=== PATIENT | male | born 1950 | race Caucasian/White ===

== ENCOUNTER 2019-06-13 21:54 | Emergency (ER) | payer MEDICARE ==
[~2019-06-13] VITALS: Ht 185.4 cm; Wt 69.8 kg
[~2019-06-13 21:54] MED LIST: ACET325T26 PO; AMBIEN; ZOLP10TA PO
--- NOTE | 2019-06-13 22:48 | NUR ---
PT NIL X3 CALLED [phone], [phone], AND [phone]
--- NOTE | 2019-06-13 23:40 | NUR ---
PT WAS CALLED MULTIPLE TIMES IN TRIAGE WITH NO ANSWER, PT NOW REAPPEARED AND WAS TRIAGED, ASSISTED TO ED ROOM 17
[2019-06-14] MEDS ORDERED: DEXAMETHASONE 4 MG TABLET PO ONE (00:30)
[2019-06-14] MEDS ORDERED: BENZONATATE 100 MG CAPSULE PO ONE (00:30)
[2019-06-14] MEDS ORDERED: DEXAMETHASONE 4 MG TABLET ONE (00:33)
[2019-06-14] MEDS ORDERED: BENZONATATE 100 MG CAPSULE ONE (00:33)
[2019-06-14 00:39] VITALS: BP 140/83
--- NOTE | 2019-06-14 00:42 | NUR ---
Pt presents to ed c/o sobxmultiple weeks w/ a productive cough and green phlegm. Pt denies any cp w/ sob. Pt denies any relevant medical hx. Monitoring applied. Vss. Call light within reach.
[2019-06-14 01:03] LABS: BASOPHILS # (AUTO) 0.04 x10^3/uL (0-0.1); BASOPHILS % (AUTO) 1 % (0-1); EOSINOPHILS # (AUTO) 0.17 x10^3/uL (0-0.4); EOSINOPHILS % (AUTO) 2 % (1-7); LYMPHOCYTES # (AUTO) 1.79 x10^3/uL (1-3.4); LYMPHOCYTES % (AUTO) 20 % (22-44); MD NO; MEAN CORPUSCULAR HEMOGLOBIN 32.3 pg (27.5-34.5); MEAN CORPUSCULAR HGB CONC 33.8 g/dL (33.2-36.2); MEAN CORPUSCULAR VOLUME 95.3 fL (81-97); MEAN PLATELET VOLUME 8.1 fL (7.4-10.4); MONOCYTES # (AUTO) 0.77 x10^3/uL (0.2-0.8); MONOCYTES % (AUTO) 9 % (2-9); NEUTROPHILS # (AUTO) 6.08 x10^3/uL (1.8-6.8); NEUTROPHILS % (AUTO) 69 % (42-75); PLATELET COUNT 304 x10^3/uL (130-400); RED BLOOD COUNT 4.89 x10^6/uL (4.38-5.82); RED CELL DISTRIBUTION WIDTH 14.8 % (9.4-14.8)
[2019-06-14 01:15] LABS: ALANINE AMINOTRANSFERASE 42 U/L (12-78); ALBUMIN 3.6 g/dL (3.4-5.0); ANION GAP 6 mmol/L (5-15); CALCIUM 8.7 mg/dL (8.5-10.1); CHLORIDE 101 mmol/L (98-107); CREATININE 0.69 mg/dL (0.7-1.3)
[2019-06-14 01:19] LABS: ALKALINE PHOSPHATASE 89 U/L (45-117); BILIRUBIN,TOTAL 0.5 mg/dL (0.2-1.0); TOTAL PROTEIN 7.1 g/dL (6.4-8.2)
== END 2019-06-13 22:59 ==
LOC: ED 22:53
DX: J20.8 Acute bronchitis due to other specified organisms (principal); J02.8 Acute pharyngitis due to other specified organisms; F17.210 Nicotine dependence, cigarettes, uncomplicated
CPT/HCPCS: 36415; 71046; 80053; 83880; 85025; 93005; 99284

== ENCOUNTER 2020-05-15 19:55 | Emergency (ER) | payer MEDICARE ==
[~2020-05-15] VITALS: Ht 185.4 cm; Wt 73.0 kg
--- NOTE | 2020-05-15 20:11 | NUR ---
PATIENT WALKED BACK FROM TRIAGE WITH CHIEF C/O CELLULITIS IN RIGHT LOWER EXTREMITY. PATIENT SEEN AT [place] [id number] IN THE LAST TWO WEEKS, HE WAS PRESCRIBED AN ABX, HOWEVER IT IS NOT HELPING. PATIENT STATES HE DOENS'T HAVE ANY FEELING IN HIS RIGHT FOOT WHEN HE WAKES UP. PATIENT'S RIGHT FOOT IS RED, SWOLLEN, AND WARM TO THE TOUCH. NO SIGNS OF ACUTE DISTRESS, CALL LIGHT WITHIN REACH.
[2020-05-15 20:41] LABS: BASOPHILS % (AUTO) 1 % (0-1); EOSINOPHILS % (AUTO) 1 % (1-7); LYMPHOCYTES % (AUTO) 30 % (22-44); MEAN CORPUSCULAR HEMOGLOBIN 30.9 pg (27.5-34.5); MEAN CORPUSCULAR HGB CONC 33.4 g/dL (33.2-36.2); MEAN PLATELET VOLUME 7.8 fL (7.4-10.4); MONOCYTES % (AUTO) 10 % (2-9); NEUTROPHILS % (AUTO) 58 % (42-75); PLATELET COUNT 310 x10^3/uL (130-400); RED BLOOD COUNT 4.51 x10^6/uL (4.38-5.82); RED CELL DISTRIBUTION WIDTH 15.3 % (9.4-14.8)
[2020-05-15 20:49] LABS: ALBUMIN 3.6 g/dL (3.4-5.0); ANION GAP 9 mmol/L (5-15); C-REACTIVE PROTEIN, QUANT 0.17 mg/dL (0.02-0.49); CHLORIDE 103 mmol/L (98-107); CREATININE 0.87 mg/dL (0.7-1.3)
[2020-05-15 21:01] LABS: MD NO
--- NOTE | 2020-05-15 21:07 | NUR ---
PATIENT RESTING IN GURNEY WATCHING TV, CONNECTED TO VITALS MACHINE, NO SIGNS OF ACUTE DISTRESS, CALL LIGHT WITHIN REACH.
[2020-05-15 21:11] VITALS: BP 126/74
--- NOTE | 2020-05-15 21:25 | NUR ---
Patient given discharge instructions and prescription and they have confirmed that they understand the instructions, all questions answered. All patient belongings gathered by patient. Patient ambulatory with steady gait to discharge desk. Bus pass provided to patient.
[2020-05-15 21:51] LABS: HCT (SEDRATE) 41.7 % (39.2-51.8)
== END 2020-05-15 21:26 | disposition home or self-care (01) ==
LOC: ED 21:00
DX: M79.671 Pain in right foot (principal); F17.200 Nicotine dependence, unspecified, uncomplicated
CPT/HCPCS: 36415; 80048; 82040; 85025; 85651; 86140; 99284

== ENCOUNTER 2020-07-24 09:57 | Emergency (ER) | payer MEDICARE ==
[~2020-07-24] VITALS: Ht 185.4 cm; Wt 72.5 kg
[2020-07-24 10:02] VITALS: BP 141/90
--- NOTE | 2020-07-24 10:17 | NUR ---
PATIENT IS A 70/M COMPLAINING OF LEFT ELBOW PAIN AND SWELLING X 2 MONTHS. HE WANTS IT DRAINED. PROVIDER AT BEDSIDE FOR EVALUATION. PATIENT RESTING COMFORTABLY WATCHING TV. CONTINUOUS SPO2 AND CYCLING VITALS. CALL LIGHT WITHIN REACH.
--- NOTE | 2020-07-24 10:26 | NUR ---
CONSENT SIGNED FOR I&D, FOR LEFT ELBOW, PT VERBALIZED UNDERSTANDING
[2020-07-24] MEDS ORDERED: TRIAMCINOLONE ACETONIDE 40 MG/ML, 1ML IM ONE (11:00)
--- NOTE | 2020-07-24 11:10 | NUR ---
ORDERED MEDS FROM PHARMACY
== END 2020-07-24 12:09 | disposition home or self-care (01) ==
LOC: ED 10:24
DX: M70.22 Olecranon bursitis, left elbow (principal); M79.89 Other specified soft tissue disorders; F17.200 Nicotine dependence, unspecified, uncomplicated
CPT/HCPCS: 20605; 84560; 85810; 87070; 87205; 89050; 89060; 99284

== ENCOUNTER 2020-09-22 19:18 | Emergency (ER) | payer MEDICARE ==
[~2020-09-22] VITALS: Ht 185.4 cm; Wt 68.0 kg
[2020-09-22 19:21] VITALS: BP 140/86
[2020-09-22 20:40] LABS: BASOPHILS % (AUTO) 0 % (0-1); EOSINOPHILS % (AUTO) 1 % (1-7); LYMPHOCYTES % (AUTO) 21 % (22-44); MEAN CORPUSCULAR HEMOGLOBIN 32.1 pg (27.5-34.5); MEAN CORPUSCULAR HGB CONC 33.9 g/dL (33.2-36.2); MEAN PLATELET VOLUME 8.2 fL (7.4-10.4); MONOCYTES % (AUTO) 11 % (2-9); NEUTROPHILS % (AUTO) 66 % (42-75); PLATELET COUNT 315 x10^3/uL (130-400); RED BLOOD COUNT 4.23 x10^6/uL (4.38-5.82); RED CELL DISTRIBUTION WIDTH 14.4 % (9.4-14.8)
[2020-09-22 20:44] LABS: MD NO
[2020-09-22 20:47] LABS: ANION GAP 8 mmol/L (5-15); CALCIUM 8.3 mg/dL (8.5-10.1); CHLORIDE 103 mmol/L (98-107); CREATININE 0.75 mg/dL (0.7-1.3)
[2020-09-22] MEDS ORDERED: DOXYCYCLINE 100MG TABLET PO ONE (21:00)
[2020-09-22] MEDS ORDERED: SULFAMETH./TRIMETHOPRIM DS 800MG/160MG TABLET PO ONE (21:00)
[2020-09-22] MEDS ORDERED: SULFAMETH./TRIMETHOPRIM DS 800MG/160MG TABLET ONE (21:32)
[2020-09-22] MEDS ORDERED: DOXYCYCLINE 100MG TABLET ONE (21:32)
== END 2020-09-22 22:01 | disposition home or self-care (01) ==
LOC: ED 21:55
DX: L03.114 Cellulitis of left upper limb (principal); L03.113 Cellulitis of right upper limb; R00.0 Tachycardia, unspecified
CPT/HCPCS: 36415; 80048; 85025; 99283

== ENCOUNTER 2020-10-18 16:29 | Emergency (ER) | payer MEDICARE ==
[~2020-10-18] VITALS: Ht 185.4 cm; Wt 68.9 kg
[2020-10-18 16:31] VITALS: BP 143/91
--- NOTE | 2020-10-18 16:38 | NUR ---
PT REFUSING TO GET INTO A GOWN.
--- NOTE | 2020-10-18 16:47 | NUR ---
CC OF "BALL" ON ELBOW, PT STATES "I WANT IT GONE TODAY". "BALL" IS GOLF BALL SIZE, FLESH COLORED WITH SCAB ON CENTER.
--- NOTE | 2020-10-18 18:39 | NUR ---
pt requesting food. up for recheck
--- NOTE | 2020-10-18 19:03 | NUR ---
REPORT GIVEN TO RICHARD WAHL
--- NOTE | 2020-10-18 19:21 | NUR ---
PT NOT IN ROOM. GOWN THROWN ON THE FLOOR. ALL PERSONAL BELONGINGS GONE.
== END 2020-10-18 19:23 | disposition left against medical advice (07) ==
LOC: ED 18:06
DX: M70.22 Olecranon bursitis, left elbow (principal); Y93.89 Activity, other specified
CPT/HCPCS: 99283

== ENCOUNTER 2020-10-22 22:38 | Emergency (ER) | payer MEDICARE ==
--- NOTE | 2020-10-22 23:08 | NUR ---
Dr Brandon at bedside.
[2020-10-22 23:29] LABS: BASOPHILS % (AUTO) 1 % (0-1); EOSINOPHILS % (AUTO) 2 % (1-7); LYMPHOCYTES % (AUTO) 17 % (22-44); MEAN CORPUSCULAR HEMOGLOBIN 33.6 pg (27.5-34.5); MEAN CORPUSCULAR HGB CONC 34.4 g/dL (33.2-36.2); MEAN PLATELET VOLUME 7.6 fL (7.4-10.4); MONOCYTES % (AUTO) 11 % (2-9); NEUTROPHILS % (AUTO) 69 % (42-75); PLATELET COUNT 294 x10^3/uL (130-400); RED BLOOD COUNT 4.06 x10^6/uL (4.38-5.82)
[2020-10-22] MEDS ORDERED: SULFAMETH./TRIMETHOPRIM DS 800MG/160MG TABLET PO ONE (23:30)
[2020-10-22] MEDS ORDERED: CEPHALEXIN 500 MG CAPSULE PO ONE (23:30)
[2020-10-22] MEDS ORDERED: CEPHALEXIN 500 MG CAPSULE ONE (23:37)
[2020-10-22 23:38] LABS: ALANINE AMINOTRANSFERASE 29 U/L (12-78); ALBUMIN 3.5 g/dL (3.4-5.0); ANION GAP 8 mmol/L (5-15); CALCIUM 8.5 mg/dL (8.5-10.1); CHLORIDE 100 mmol/L (98-107)
[2020-10-22] MEDS ORDERED: SULFAMETH./TRIMETHOPRIM DS 800MG/160MG TABLET ONE (23:38)
[2020-10-22 23:41] LABS: ALKALINE PHOSPHATASE 96 U/L (45-117); BILIRUBIN,TOTAL 0.5 mg/dL (0.2-1.0); CREATININE 0.65 mg/dL (0.7-1.3); TOTAL PROTEIN 6.7 g/dL (6.4-8.2)
[2020-10-22 23:48] LABS: MD NO
--- NOTE | 2020-10-22 23:53 | NUR ---
Medicated per order, ultrasound done. Pt asking for pain medications.
[2020-10-23 00:23] VITALS: BP 135/71
== END 2020-10-23 00:40 | disposition home or self-care (01) ==
LOC: ED 10-23 00:35
DX: M70.22 Olecranon bursitis, left elbow (principal); M79.89 Other specified soft tissue disorders
CPT/HCPCS: 36415; 80053; 83735; 85025; 99284

== ENCOUNTER 2020-11-09 21:20 | Emergency (ER) | payer MEDICARE ==
[~2020-11-09] VITALS: Ht 185.4 cm; Wt 69.1 kg
[2020-11-09] MEDS ORDERED: SODIUM CHLORIDE 0.9% 1,000ML IVBOLUS ONE (22:00)
--- NOTE | 2020-11-09 22:12 | NUR ---
THIS IS A 70M THAT COMES IN FOR PNA AND STS HE HAS FINISHED HIS COURSE OF 10DAY ABX. HOWEVER HE HAS HAD A LINGERING COUGH THAT CAN LEAD TO SOME CHEST PAIN. PT CONNECTED TO ALL MONITORING VSS NADN, SPEAKING IN FULL SENTENCES.
[2020-11-09 22:18] LABS: BASOPHILS % (AUTO) 1 % (0-1); EOSINOPHILS % (AUTO) 1 % (1-7); LYMPHOCYTES % (AUTO) 18 % (22-44); MEAN CORPUSCULAR HEMOGLOBIN 33.1 pg (27.5-34.5); MEAN CORPUSCULAR HGB CONC 34.2 g/dL (33.2-36.2); MEAN PLATELET VOLUME 6.9 fL (7.4-10.4); MONOCYTES % (AUTO) 8 % (2-9); NEUTROPHILS % (AUTO) 73 % (42-75); PLATELET COUNT 408 x10^3/uL (130-400); RED BLOOD COUNT 4.04 x10^6/uL (4.38-5.82)
[2020-11-09 22:19] LABS: MD NO
[2020-11-09 22:31] LABS: ALANINE AMINOTRANSFERASE 24 U/L (12-78); ALBUMIN 3.4 g/dL (3.4-5.0); ANION GAP 8 mmol/L (5-15); CALCIUM 8.3 mg/dL (8.5-10.1); CHLORIDE 101 mmol/L (98-107); CREATININE 0.88 mg/dL (0.7-1.3)
[2020-11-09 22:35] LABS: ALKALINE PHOSPHATASE 85 U/L (45-117); BILIRUBIN,TOTAL 0.3 mg/dL (0.2-1.0); TOTAL PROTEIN 6.6 g/dL (6.4-8.2); TROPONIN I < 0.015 ng/mL (0.000-0.045)
--- NOTE | 2020-11-09 22:56 | NUR ---
PT TO CT AT THIS TIME
[2020-11-10 00:02] VITALS: BP 130/97
--- NOTE | 2020-11-10 00:55 | NUR ---
Patient/Caregiver given discharge instructions and they have confirmed that they understand the instructions. Patient ambulatory with steady gait.
[2020-11-10] MEDS ORDERED: OMNIPAQUE 350 MG/ML, 100ML BOTTLE ONE (04:26)
== END 2020-11-10 01:06 | disposition home or self-care (01) ==
LOC: ED 21:51
DX: R05 Cough (principal); R07.89 Other chest pain; R06.02 Shortness of breath; R00.0 Tachycardia, unspecified; F17.210 Nicotine dependence, cigarettes, uncomplicated
CPT/HCPCS: 36415; 71045; 71275; 80053; 83605; 83880; 84145; 84484; 85025; 87040; 93005; 96360; 99285; J7030; Q9967

== ENCOUNTER 2020-11-22 02:46 | Emergency (ER) | payer MEDICARE ==
[~2020-11-22] VITALS: Ht 185.4 cm; Wt 70.9 kg
[2020-11-22 02:52] VITALS: BP 130/79
== END 2020-11-22 04:12 | disposition home or self-care (01) ==
LOC: ED 03:00
DX: M25.522 Pain in left elbow (principal); R55 Syncope and collapse; F17.210 Nicotine dependence, cigarettes, uncomplicated
CPT/HCPCS: 93005; 99283; 99406

== ENCOUNTER 2021-02-13 11:48 | Inpatient (IN) | payer MEDICARE ==
[~2021-02-13] VITALS: Ht 185.4 cm; Wt 68.5 kg
[2021-02-13] MEDS ORDERED: ACETAMINOPHEN 500 MG TABLET ONE ×2 (12:04→12:06)
--- NOTE | 2021-02-13 12:15 | NUR ---
PT TO ROOM FROM RADIOLOGY VIA W/C
--- NOTE | 2021-02-13 12:19 | NUR ---
71 YR OLD MALE HERE WITH C/O "RIGHT LEG AND FOOT RED AND SWOLLEN" BEGAN ABOUT TUESDAY MORNING "I HAVE BEEN DEALING WITH THIS FOR ABOUT 2/5 YRS. THERE IS A BACTERIA IN THERE" DENIES ANY NEW INJURY/OPEN AREAS. RIGHT LOWER LEG RED SWOLLEN (INCREASED SWELLING OF RIGHT INNER ANKLE) WARM TO TOUCH. RIGHT MIDDLE TOW RED WITH BLISTER AND SWOLLEN. REMAINING TOES WITH PEELING SKIN. "I DO A LOT OF HIKING"
--- NOTE | 2021-02-13 12:27 | NUR ---
LAB AT BEDSIDE TO DRAW LABS, INCLUDING 2 SETS OF BLOOD CULTURES
[2021-02-13] MEDS ORDERED: ACETAMINOPHEN 500 MG TABLET PO ONE (12:30)
[2021-02-13 12:54] LABS: ALBUMIN 3.6 g/dL (3.4-5.0); ANION GAP 7 mmol/L (5-15); CHLORIDE 90 mmol/L (98-107); MEAN CORPUSCULAR HEMOGLOBIN 32.9 pg (27.5-34.5); MEAN CORPUSCULAR HGB CONC 34.1 g/dL (33.2-36.2); MEAN PLATELET VOLUME 7.8 fL (7.4-10.4); PLATELET COUNT 303 x10^3/uL (130-400); RED BLOOD COUNT 4.19 x10^6/uL (4.38-5.82); RED CELL DISTRIBUTION WIDTH 15.1 % (9.4-14.8)
[2021-02-13 12:56] LABS: ALANINE AMINOTRANSFERASE 31 U/L (12-78); ALKALINE PHOSPHATASE 111 U/L (45-117); BILIRUBIN,TOTAL 1.2 mg/dL (0.2-1.0); CREATININE 0.79 mg/dL (0.7-1.3); TOTAL PROTEIN 7.5 g/dL (6.4-8.2)
[2021-02-13] MEDS ORDERED: SODIUM CHLORIDE 0.9% 1,000ML IVBOLUS ONE (13:00)
[2021-02-13] MEDS ORDERED: VANCOMYCIN PER PHARMACY MC PRN ×2 (13:00→15:00)
[2021-02-13] MEDS ORDERED: SODIUM CHLORIDE FLUSH 10ML SYR IVF ONE (13:00)
[2021-02-13] MEDS ORDERED: VANCOMYCIN 1,600 MG in SODIUM CHLORIDE 0.9% 250 ML IV ONE (13:30)
[2021-02-13] MEDS ORDERED: PHARMACOKINETIC CONSULTATION MC ONE (13:30)
--- NOTE | 2021-02-13 13:46 | NUR ---
PT DOZING INTERMITTENTLY, AROUSES EASILY. ST PER MONITOR. AUTO BP AND PULSE OX IN PLACE. SLIGHT DECREASE IN TEMP NOTED. NO CHANGE IN RIGHT LEG REDNESS/SWELLING. PT AWARE OF TO RECEIVE IV FLUIDS AND IV ABX. NO NEEDS EXPRESSED AT THIS TIME.
[2021-02-13 13:47] LABS: <PLATELET ESTIMATE> ADEQUATE; <PLT MORPHOLOGY> NORMAL PLT MORPH; <RBC MORPHOLOGY> NORMAL; BAND#(MANUAL) 1.66 x10^3/uL; BANDS%(MANUAL) 9 % (0-7); LYMPH#(MANUAL) 0.92 x10^3/uL (1-3.4); LYMPHS% (MANUAL) 5 % (22-44); MONOS#(MANUAL) 0.55 x10^3/uL (0.3-2.7); MONOS% (MANUAL) 3 % (2-9); SEG#(MANUAL) 15.27 x10^3/uL (1.8-6.8); SEGS% (MANUAL) 83 % (42-75)
[2021-02-13] MEDS ORDERED: SODIUM CHLORIDE 0.9% 1,000 ML IV ONE (14:00)
[2021-02-13] MEDS ORDERED: SODIUM CHLORIDE FLUSH 10ML SYR IVF PRN (14:30)
--- NOTE | 2021-02-13 14:48 | NUR ---
PT AWAKE, USING CELL PHONE, WATCHING TV. TEMP DECREASED. IV ABX INFUSING ORDERED WITHOUT S/S OF ADVERSE EFFECT. PT AWARE OF WAITING FOR ROOM ASSIGNMENT. NO NEEDS EXPRESSED AT THIS TIME.
[2021-02-13] MEDS ORDERED: MELATONIN 5 MG TABLET PO PRN (15:00)
[2021-02-13] MEDS ORDERED: ACETAMINOPHEN 325 MG TABLET PO PRN (15:00)
[2021-02-13] MEDS ORDERED: KETOROLAC 30 MG/1 ML IV PRN (15:00)
[2021-02-13] MEDS ORDERED: PROMETHAZINE 25 MG/ML, 1ML IM PRN (15:00)
[2021-02-13] MEDS ORDERED: ONDANSETRON 2MG/ML, 2ML IVPush PRN (15:00)
[2021-02-13] MEDS ORDERED: ONDANSETRON ODT 4 MG PO PRN (15:00)
[2021-02-13] MEDS: SODIUM CHLORIDE 0.9% 1,000 ML IV SCH ×2 (15:00→20:12)
[2021-02-13] MEDS ORDERED: morphine SULFATE 10 MG/ML, 1ML IVPush PRN (15:00)
[2021-02-13] MEDS ORDERED: hydrALAzine 20 MG/ML, 1ML IVPush PRN (15:00)
[2021-02-13] MEDS ORDERED: ENALAPRILAT 1.25 MG/ML, 2ML IVPush PRN (15:00)
--- NOTE | 2021-02-13 15:41 | NUR ---
NS AT 100ML/HR NOT STARTED R/T VANCO INFUSING.
--- NOTE | 2021-02-13 15:42 | NUR ---
REPORT CALLED TO AMIRA WAHL. POC DISCUSSED
[2021-02-13 16:20] VITALS: BP 135/84
[2021-02-13] MEDS ORDERED: PHARMACOKINETIC MONITORING MC PRN (16:30)
[2021-02-13] MEDS: ENOXAPARIN 40 MG/0.4 ML SQ SCH (17:25)
[2021-02-13 19:49] VITALS: BP 135/75
[2021-02-13] MEDS: ZOLPIDEM 5MG TABLET PO PRN (23:16)
[2021-02-14 02:43] VITALS: BP 127/73
[2021-02-14] MEDS: VANCOMYCIN 1,300 MG in SODIUM CHLORIDE 0.9% 250 ML IV SCH ×2 (03:44→16:52)
[2021-02-14 06:23] LABS: BASOPHILS % (AUTO) 0 % (0-1); EOSINOPHILS % (AUTO) 0 % (1-7); LYMPHOCYTES % (AUTO) 5 % (22-44); MEAN CORPUSCULAR HEMOGLOBIN 32.6 pg (27.5-34.5); MEAN CORPUSCULAR HGB CONC 34.2 g/dL (33.2-36.2); MEAN PLATELET VOLUME 7.4 fL (7.4-10.4); MONOCYTES % (AUTO) 5 % (2-9); NEUTROPHILS % (AUTO) 90 % (42-75); PLATELET COUNT 261 x10^3/uL (130-400); RED BLOOD COUNT 4.06 x10^6/uL (4.38-5.82); RED CELL DISTRIBUTION WIDTH 14.9 % (9.4-14.8)
[2021-02-14 06:32] LABS: ANION GAP 2 mmol/L (5-15); CALCIUM 8.2 mg/dL (8.5-10.1); CHLORIDE 100 mmol/L (98-107)
[2021-02-14 06:33] LABS: CREATININE 0.56 mg/dL (0.7-1.3)
[2021-02-14 08:05] VITALS: BP 152/82
[2021-02-14] MEDS ORDERED: GADOTERATE 7.5 MMOL/15ML SYR ONE (13:00)
[2021-02-14 13:55] VITALS: BP 145/83
[2021-02-14] MEDS: HYDROcodone/APAP 5/325 TABLET PO PRN ×2 (14:59→20:31)
[2021-02-14] MEDS: ENOXAPARIN 40 MG/0.4 ML SQ SCH (15:13)
[2021-02-14 20:13] VITALS: BP 151/83
[2021-02-14] MEDS: ZOLPIDEM 5MG TABLET PO PRN (22:47)
[2021-02-15 03:59] VITALS: BP 159/91
[2021-02-15 04:10] VITALS: BP 159/91
[2021-02-15] MEDS: VANCOMYCIN 1,300 MG in SODIUM CHLORIDE 0.9% 250 ML IV SCH ×2 (04:10→16:12)
[2021-02-15] MEDS: HYDROcodone/APAP 5/325 TABLET PO PRN ×4 (04:34→20:42)
[2021-02-15 06:40] LABS: HCT (SEDRATE) 39.5 % (39.2-51.8)
[2021-02-15 06:46] LABS: BASOPHILS % (AUTO) 1 % (0-1); EOSINOPHILS % (AUTO) 2 % (1-7); LYMPHOCYTES % (AUTO) 18 % (22-44); MEAN CORPUSCULAR HEMOGLOBIN 32.6 pg (27.5-34.5); MEAN CORPUSCULAR HGB CONC 33.6 g/dL (33.2-36.2); MEAN PLATELET VOLUME 8.5 fL (7.4-10.4); MONOCYTES % (AUTO) 10 % (2-9); NEUTROPHILS % (AUTO) 69 % (42-75); PLATELET COUNT 230 x10^3/uL (130-400); RED BLOOD COUNT 4.07 x10^6/uL (4.38-5.82); RED CELL DISTRIBUTION WIDTH 14.9 % (9.4-14.8)
[2021-02-15 06:50] LABS: ALBUMIN 2.7 g/dL (3.4-5.0); ANION GAP 4 mmol/L (5-15); CALCIUM 8.4 mg/dL (8.5-10.1); CHLORIDE 99 mmol/L (98-107)
[2021-02-15 06:58] LABS: ALANINE AMINOTRANSFERASE 41 U/L (12-78); ALKALINE PHOSPHATASE 78 U/L (45-117); BILIRUBIN,TOTAL 0.4 mg/dL (0.2-1.0); CREATININE 0.57 mg/dL (0.7-1.3); TOTAL PROTEIN 5.8 g/dL (6.4-8.2)
[2021-02-15 07:58] VITALS: BP 150/78
[2021-02-15] MEDS ORDERED: POTASSIUM CHLORIDE 20 MEQ TAB.ER.PRT PO ONE (09:30)
[2021-02-15] MEDS: DOCUSATE 100 MG CAPSULE PO PRN ×2 (09:38→19:24)
[2021-02-15 12:01] VITALS: BP 155/81
[2021-02-15] MEDS: ENOXAPARIN 40 MG/0.4 ML SQ SCH (15:30)
[2021-02-15 18:19] VITALS: BP 143/78
[2021-02-15] MEDS: ZOLPIDEM 5MG TABLET PO PRN (22:39)
[2021-02-16] MEDS: HYDROcodone/APAP 5/325 TABLET PO PRN ×3 (04:16→22:52)
[2021-02-16] MEDS: VANCOMYCIN 1,500 MG in SODIUM CHLORIDE 0.9% 250 ML IV SCH ×2 (04:16→16:40)
[2021-02-16 04:21] VITALS: BP 154/88
[2021-02-16 06:15] LABS: BASOPHILS % (AUTO) 1 % (0-1); EOSINOPHILS % (AUTO) 2 % (1-7); LYMPHOCYTES % (AUTO) 15 % (22-44); MEAN CORPUSCULAR HEMOGLOBIN 32.7 pg (27.5-34.5); MEAN CORPUSCULAR HGB CONC 33.7 g/dL (33.2-36.2); MEAN PLATELET VOLUME 8.3 fL (7.4-10.4); MONOCYTES % (AUTO) 9 % (2-9); NEUTROPHILS % (AUTO) 74 % (42-75); PLATELET COUNT 267 x10^3/uL (130-400); RED BLOOD COUNT 4.17 x10^6/uL (4.38-5.82)
[2021-02-16 06:25] LABS: CALCIUM 8.5 mg/dL (8.5-10.1); CHLORIDE 96 mmol/L (98-107)
[2021-02-16 06:26] LABS: CREATININE 0.65 mg/dL (0.7-1.3)
[2021-02-16 06:33] LABS: ANION GAP 4 mmol/L (5-15)
[2021-02-16] MEDS ORDERED: POTASSIUM CHLORIDE 20 MEQ TAB.ER.PRT PO ONE (07:30)
[2021-02-16 08:49] VITALS: BP 128/67
[2021-02-16 09:04] LABS: CALCIUM 8.5 mg/dL (8.5-10.1); CHLORIDE 98 mmol/L (98-107)
[2021-02-16 09:20] LABS: ANION GAP 5 mmol/L (5-15)
[2021-02-16] MEDS: DOCUSATE 100 MG CAPSULE PO PRN (11:43)
[2021-02-16 14:28] VITALS: BP 139/88
[2021-02-16] MEDS: ENOXAPARIN 40 MG/0.4 ML SQ SCH ×2 (15:30→16:39)
[2021-02-16 20:10] VITALS: BP 133/76
[2021-02-16] MEDS: ZOLPIDEM 5MG TABLET PO PRN (22:48)
[2021-02-17 00:41] VITALS: BP 133/79
[2021-02-17] MEDS: VANCOMYCIN 1,500 MG in SODIUM CHLORIDE 0.9% 250 ML IV SCH (04:12)
[2021-02-17 06:32] VITALS: BP 149/86
[2021-02-17] MEDS ORDERED: DALBAVANCIN HCL 1,500 MG in DEXTROSE 5% 500 ML IV ONE (12:00)
[2021-02-17] MEDS ORDERED: HYDR-2214 PO (13:54)
[2021-02-17 13:57] VITALS: BP 130/76
[2021-02-17] MEDS ORDERED: ZOLPIDEM 10MG TABLET PO PRN (14:00)
== END 2021-02-17 15:55 | disposition home or self-care (01) | DRG 872 ==
LOC: ED 13:55 → EDIP 14:17 → 3N 16:13
PROVIDERS: ADMIT Hospitalist; ATTEND Internal Medicine
DX: A41.9 Sepsis, unspecified organism (principal); L03.115 Cellulitis of right lower limb; E87.1 Hypo-osmolality and hyponatremia; M86.8X7 Other osteomyelitis, ankle and foot; M46.24 Osteomyelitis of vertebra, thoracic region; Z86.14 Personal history of Methicillin resistant Staphylococcus aureus infection; F51.04 Psychophysiologic insomnia; F17.210 Nicotine dependence, cigarettes, uncomplicated; Z87.01 Personal history of pneumonia (recurrent); Z88.0 Allergy status to penicillin; Z91.013 Allergy to seafood; Z80.3 Family history of malignant neoplasm of breast; Z86.59 Personal history of other mental and behavioral disorders; Z71.6 Tobacco abuse counseling
CPT/HCPCS: 36415; 71045; 80048; 80053; 80202; 83605; 83735; 84100; 85025; 85651; 86140; 87040; 93005; 96361; 96374; G0378; J1650; J3370; A9575; J0875; J7030; J7050; J7060